=== PATIENT | female | born 1940 | race American Indian/Alaskan Native ===

== ENCOUNTER 2018-10-02 16:17 | Outpatient (CLI) | payer MEDICARE | END 2018-10-02 16:18 | disposition home or self-care (01) | LOC: C.LAB 16:17 ==

== ENCOUNTER 2018-10-09 09:42 | Outpatient (CLI) | payer MEDICARE | END 2018-10-09 09:43 | disposition home or self-care (01) | LOC: C.PAT 09:42 | DX: I73.9 Peripheral vascular disease, unspecified (principal) ==

== ENCOUNTER 2018-10-11 08:36 | Day surgery (SDC) | payer MEDICARE ==
[2018-10-09 10:05] VITALS: BMI 32.7
[2018-10-11 15:16] VITALS: O2SAT 100
[2018-10-11 15:55] VITALS: PULSE 54; RESP 13; TEMP 97.9
[2018-10-11 16:36] VITALS: BP 103/64
== END 2018-10-11 17:06 | disposition home or self-care (01) ==
LOC: C.SPRAD 08:36
PROVIDERS: ATTEND Surgery Vascular Surgery
DX: E11.51 Type 2 diabetes mellitus with diabetic peripheral angiopathy without gangrene (principal); I70.235 Atherosclerosis of native arteries of right leg with ulceration of other part of foot; L97.519 Non-pressure chronic ulcer of other part of right foot with unspecified severity; E11.621 Type 2 diabetes mellitus with foot ulcer; Z79.84 Long term (current) use of oral hypoglycemic drugs
CPT/HCPCS: 37228; 75625; 82948; C1725; C1760; C1769; C1887; C1894; J0690; J1644; J7030; J7040; Q9966